=== PATIENT | male | born 1960 | race Caucasian/White ===

== ENCOUNTER 2022-01-21 16:07 | Inpatient (IN) ==
[2022-01-21] MEDS ORDERED: FUROSEMIDE 100 MG/10 ML VIAL IV ONE (16:19)
[2022-01-21 16:38] LABS: POC Calcium, Ionized 1.17 (1.16-1.32); POC Creatinine 1.1 (0.6-1.2); POC Potassium 4.1 (3.3-5.1)
--- NOTE | 2022-01-21 16:58 | Emergency Department Note ---
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 The patient was seen yesterday in our ER for the same complaints and I recommended admission for monitored diuresis for anasarca and the patient declined, leaving the ED AGAINST MEDICAL ADVICE. The patient was supposed to have an EGD with Dr. Brown today but canceled his appointment because he is having too many loose b owel movements. Patient is on lactulose for hepatic encephalopathy. He was recently admitted at [facility] from 01/03 through 01/16 for decompensated hepatic cirrhosis. It sounds like he had another paracentesis during that admission and he recalls that they removed 4 L of fluid. The scrotal swelling has been persistent for many days and seems to be getting worse. He also has significant abdominal ascites and lower extremity swelling. He takes 20 mg of furosemide daily plus 5 mg of amiloride. He is being managed by Janett Willard, gastroenterology, and per her note is supposed to be on rifaximin, but he has not been able to afford the coinsurance on this. Review of medical records shows previous EGD dated 10/30/21 that showed no evidence of esophageal varices. The patient has anemia of chronic disease at baseline with hemoglobin is typically between 8 and 9. Related Data Home Medications Medication Instructions Recorded Confirmed furosemide 40 mg tablet 20 mg PO QDAY 11/20/21 12/10/21 spironolactone 100 mg tablet 50 mg PO QDAY 11/20/21 12/10/21 ascorbic acid (vitamin C) 1,000 mg 1 g PO QDAY 12/10/21 12/10/21 tablet rifaximin 550 mg tablet (Xifaxan) 550 mg PO BID 12/10/21 12/10/21 sulfamethoxazole 800 1 tab PO BID 12/10/21 12/10/21 mg-trimethoprim 160 mg tablet (Bactrim DS) Previous Rx's Medication Instructions Recorded omeprazole 20 mg capsule,delayed 40 mg PO QDAY #180 caps 02/28/21 release lactulose 20 gram/30 mL oral 20 g (30 mL) PO TID #3,000 mL 11/01/21 solution triamcinolone acetonide 0.5 % 1 applic topical BID #15 grams 11/20/21 topical cream allopurinol 300 mg tablet 300 mg PO QDAY #90 tabs 11/22/21 alprazolam 1 mg tablet 1 mg PO BID #56 tabs 01/14/22 hydrocodone 10 mg-acetaminophen 1 tab PO Q4H PRN pain, mild #168 01/20/22 325 mg tablet tabs Allergies Allergy/AdvReac Type Severity Reaction Status Date / Time No Known Drug Allergies Allergy Verified 01/20/22 17:08 Review of Systems ROS ROS Narrative: Narrative: PFSH Narrative Patient History Narrative: Narrative: Medical/Surgical/Family History All Active Problems (Updated 01/21/22 @ 21:20 by Kaylee Ray PA-C) Anasarca (Acute) Abdominal ascites (Acute) Hyponatremia (Acute) Thrombocytopenia (Acute) Anasarca (Acute) Abdominal ascites (Acute) ALC (alcoholic liver cirrhosis) (Acute) Acute hyponatremia (Acute) Kidney mass (Acute) Ascites due to alcoholic cirrhosis (Acute) Hepatic encephalopathy (Acute) Musculoskeletal pain (Chronic) Inflammatory polyarthropathy (Chronic) Generalized anxiety disorder (Chronic) Gout (Chronic) Hypertension (Chronic) Joint pain (Chronic) Hemangioma of skin and subcutaneous tissue (Chronic) Pain in metatarsus of both feet (Chronic) History of cryosurgery (Chronic) Tooth pain (Chronic 03/19/15) Hip pain (Chronic 01/22/12) Backache (Chronic 01/22/12) Positive urine drug screen (Chronic 09/06/15) Anxiety (Chronic) Arthritis (Chronic) Daytime sleepiness (Chronic) Tobacco use (Chronic) Alcohol use (Chronic) Lumbar disc disease with radiculopathy (Chronic) Transaminitis (Chronic) Bicipital tendinitis of left shoulder (Chronic) Chronic prescription opiate use (Chronic) Lumbar disc disease with radiculopathy (Chronic) Ventral hernia (Chronic) Spondylosis without myelopathy or radiculopathy, cervical region (Chronic) Radiculopathy, cervical region (Chronic) Myalgia, unspecified site (Chronic) Cervicalgia (Chronic) Chronic gout (Chronic) History of surgery (Chronic) Medicare annual wellness visit, initial (Chronic) Carpal tunnel syndrome of right wrist (Chronic) CMC arthritis, thumb, degenerative (Chronic) Acute bronchitis (Chronic) Polyarthralgia (Chronic) Rheumatoid factor positive (Chronic) Dry eyes (Chronic) Right hand pain (Chronic) Pain of right thumb (Acute) Radiculopathy of lumbar region (Acute) Myofascial pain (Acute) 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) Alcohol use (Acute) Bilateral lower extremity edema (Acute) Constipation (Acute) Abdominal distention, non-gaseous (Acute) Abdominal pain (Acute) Ascites (Acute) Decompensated hepatic cirrhosis (Acute) Cirrhosis (Chronic) Budd-Chiari syndrome (Acute) Hyperammonemia (Acute) Jaundice (Acute) Insomnia (Acute) No-show for appointment (Acute) Medical History Abdominal distention, non-gaseous Abdominal pain Acute bronchitis Alcohol use Alcohol use Anxiety Arthritis Ascites due to alcoholic cirrhosis Backache (01/22/12) Bicipital tendinitis of left shoulder Bilateral lower extremity edema Carpal tunnel syndrome of right wrist Cervicalgia Chronic gout Chronic prescription opiate use CMC arthritis, thumb, degenerative Constipation Daytime sleepiness Degenerative arthritis of metacarpophalangeal joint of index finger of right hand Dry eyes Generalized anxiety disorder Gout Chech Uric acid Hemangioma of skin and subcutaneous tissue Hepatic encephalopathy Hip pain (01/22/12) Hyperammonemia Hypertension Inflammatory polyarthropathy Insomnia Jaundice Joint pain Left ankle pain Left wrist pain Lesion of penis 2 mm hemangioma on left side of meatus of penis Lumbar disc disease with radiculopathy Lumbar disc disease with radiculopathy Medicare annual wellness visit, initial Muscle pain Musculoskeletal pain Sharp-interference with sleep, interference with work, moderate to severe. Myalgia, unspecified site Pain in metatarsus of both feet Pain in right wrist (09/06/15) Pain of right thumb Polyarthralgia Positive urine drug screen (09/06/15) Positive for cocaine Radiculopathy, cervical region Rheumatoid arthritis (09/07/13) Rheumatoid factor positive Right ankle pain Right hand pain Spondylosis without myelopathy or radiculopathy, cervical region Swelling of left hand MCP swelling and tenderness and PIP swelling and tenderness Swelling of right hand MCP swelling and tenderness and PIP swelling and tenderness Tobacco use Tooth pain (03/19/15) In process of dental work Transaminitis Ventral hernia Surgical History History of cryosurgery Warts/Seborrheic Keratoses/Actinic Keratoses: Destruction Benign Lesions History of surgery Trial w/o sed 06/22/2019 MBB #1 Ja. C3-7 w/o sed 05/09/2019 CONCEPCION #2 w/cath, w/o sed 01/13/19 CONCEPCION #1 w/cath, w/o sed 12/15/18 History of throat surgery 2012 History of total left knee replacement 2012 Family History Unknown Arthritis Social History Alcohol Intake Frequency: a few times a week Substance Use: marijuana Exam Narrative Narrative: Narrative: Course Course Course Narrative: 61-year-old male with liver cirrhosis and recurrent ascites presents to the ER with anasarca Reevaluation(s) Reevaluation #1: Establish IV give 60 mg IV Lasix. This time will place Rivas catheter as he had difficulty voiding yesterday. I reached out to Dr. Carey, hospitalist for admission for monitored IV diuresis and stabilization. Hopefully he can connect with Dr. Brown while he is here this week for his EGD. Reevaluation #2: Patient is having heightened anxiety right now and is asking for anxiety medications. He vehemently denies recurrent alcohol use. Patient has chronically been on benzodiazepines and narcotics, and these are currently being prescribed by his PCP. At this time given his severe anxiety I gave him 1 mg of oral Ativan we will monitor. Reevaluation #3: Patient is still feeling anxious with tremors. We discussed some IV Benadryl and will trial 50 mg IV x1 dose. Vital Signs Vital signs: Vital Signs Temperature 98.2 F 01/21/22 16:07 Pulse Rate 74 01/21/22 16:07 Respiratory Rate 18 01/21/22 16:07 Blood Pressure 101/66 01/21/22 16:07 Pulse Oximetry (%) 97 01/21/22 16:07 Oxygen Delivery Method 01/21/22 16:07 Temperature 98.0 F 01/21/22 20:14 Pulse Rate 77 01/21/22 20:14 Respiratory Rate 12 01/21/22 20:14 Blood Pressure 108/68 01/21/22 20:14 Pulse Oximetry (%) 100 01/21/22 20:14 Oxygen Delivery Method 01/21/22 20:14 MDM MDM Narrative Medical decision making narrative: Child's Phillips class B alcoholic liver cirrhosis Recurrent ascites Anasarca Hyponatremia The patient has been accepted for admission by Dr. Carey for monitored diuresis and stabilization. Lab Data Result diagrams: 01/21/22 16:33 01/21/22 16:33 Labs: Lab Results 01/21/22 01/21/22 01/21/22 Range/Units 16:33 16:33 16:33 WBC 9.9 (4.5-11.0) K/mcL RBC 3.11 L (4.63-6.08) M/mcL Hgb 10.4 L (13.7-17.5) g/dL Hct 29.2 L (40.1-51.0) % POC Hct 28.0 L (41-55) MCV 93.9 (80.0-100.0) fL MCH 33.4 (26.0-34.0) pg MCHC 35.6 (31.0-36.0) g/dL RDW 14.8 H (11.5-14.5) % Plt Count 100 L (140-440) K/mcL MPV 10.5 (8.8-12.5) fL Immature Gran % (Auto) 0.5 (0.0-0.5) % Neut % (Auto) 73.8 (38.0-78.0) % Lymph % (Auto) 9.7 L (15.5-49.0) % [place] % (Auto) 15.2 H (1.0-12.0) % Eos % (Auto) 0.7 (0.0-7.0) % Baso % (Auto) 0.1 (0.0-2.0) % Lymph # (Auto) 0.96 L (1.50-4.80) K/mcL [place] # (Auto) 1.50 H (0.10-0.90) K/mcL Eos # (Auto) 0.07 (0.00-0.70) K/mcL Baso # (Auto) 0.01 (0.00-0.30) K/mcL Immature Gran # 0.05 (0.00-0.05) K/mcl Absolute Neutrophils 7.26 (1.80-8.00) K/mcL POC Sodium 126 L (133-145) Sodium 119 L* (133-145) mmol/L POC Potassium 4.1 (3.3-5.1) Potassium 4.1 (3.3-5.1) mmol/L POC Chloride 98 (96-108) Chloride 91 L (96-108) mmol/L Carbon Dioxide 16 L (22-30) mmol/L POC Total CO2 16.0 L (22-30) Anion Gap 12.0 (8.0-16.0) POC BUN 40 H (6-20) BUN 42 H (8-23) mg/dL Creatinine 1.0 (0.7-1.2) mg/dL POC Creatinine 1.1 (0.6-1.2) GFR Calculation 81 Glucose 96 (70-105) mg/dL POC Glucose 98 (70-105) Uric Acid 7.4 (2.5-8.0) mg/dL Calcium 8.4 L (8.6-10.4) mg/dL POC WB Ioniz Calcium 1.17 (1.16-1.32) Phosphorus 3.3 (2.5-4.5) mg/dL Magnesium 2.2 (1.6-2.5) mg/dL Total Bilirubin 1.3 H (0.1-1.0) mg/dL Direct Bilirubin 0.5 H (<0.3) mg/dL GGT 31 (8-61) U/L AST 75 H (<40) U/L ALT 44 H (<40) U/L Alkaline Phosphatase 103 (39-117) U/L Lactate Dehydrogenase 355 H (135-225) U/L Total Protein 5.8 L (5.9-8.4) gm/dL Albumin 2.8 L (3.2-5.2) gm/dL Globulin 3.0 (2.2-3.7) gm/dL Albumin/Globulin Ratio 0.9 L (1.0-2.3) Triglycerides 63 (<150) mg/dL Urine Color Urine Appearance (Clear) Urine pH (5.0-9.0) Ur Specific [place] (1.000-1.035) Urine Protein (Negative) mg/dL Urine Glucose (UA) (Negative) mg/dL Urine Ketones (Negative) mg/dL Urine Occult Blood (Negative) mg/dL Urine Nitrate (Negative) Urine Bilirubin (Negative) mg/dL Urine Urobilinogen mg/dL Ur Leukocyte Esterase (Negative) /uL Ur Culture Indicated? 01/21/22 Range/Units 16:33 WBC (4.5-11.0) K/mcL RBC (4.63-6.08) M/mcL Hgb (13.7-17.5) g/dL Hct (40.1-51.0) % POC Hct (41-55) MCV (80.0-100.0) fL MCH (26.0-34.0) pg MCHC (31.0-36.0) g/dL RDW (11.5-14.5) % Plt Count (140-440) K/mcL MPV (8.8-12.5) fL Immature Gran % (Auto) (0.0-0.5) % Neut % (Auto) (38.0-78.0) % Lymph % (Auto) (15.5-49.0) % [place] % (Auto) (1.0-12.0) % Eos % (Auto) (0.0-7.0) % Baso % (Auto) (0.0-2.0) % Lymph # (Auto) (1.50-4.80) K/mcL [place] # (Auto) (0.10-0.90) K/mcL Eos # (Auto) (0.00-0.70) K/mcL Baso # (Auto) (0.00-0.30) K/mcL Immature Gran # (0.00-0.05) K/mcl Absolute Neutrophils (1.80-8.00) K/mcL POC Sodium (133-145) Sodium (133-145) mmol/L POC Potassium (3.3-5.1) Potassium (3.3-5.1) mmol/L POC Chloride (96-108) Chloride (96-108) mmol/L Carbon Dioxide (22-30) mmol/L POC Total CO2 (22-30) Anion Gap (8.0-16.0) POC BUN (6-20) BUN (8-23) mg/dL Creatinine (0.7-1.2) mg/dL POC Creatinine (0.6-1.2) GFR Calculation Glucose (70-105) mg/dL POC Glucose (70-105) Uric Acid (2.5-8.0) mg/dL Calcium (8.6-10.4) mg/dL POC WB Ioniz Calcium (1.16-1.32) Phosphorus (2.5-4.5) mg/dL Magnesium (1.6-2.5) mg/dL Total Bilirubin (0.1-1.0) mg/dL Direct Bilirubin (<0.3) mg/dL GGT (8-61) U/L AST (<40) U/L ALT (<40) U/L Alkaline Phosphatase (39-117) U/L Lactate Dehydrogenase (135-225) U/L Total Protein (5.9-8.4) gm/dL Albumin (3.2-5.2) gm/dL Globulin (2.2-3.7) gm/dL Albumin/Globulin Ratio (1.0-2.3) Triglycerides (<150) mg/dL Urine Color Yellow Urine Appearance Hazy A (Clear) Urine pH 5.0 (5.0-9.0) Ur Specific [place] 1.017 (1.000-1.035) Urine Protein Negative (Negative) mg/dL Urine Glucose (UA) Negative (Negative) mg/dL Urine Ketones Negative (Negative) mg/dL Urine Occult Blood Negative (Negative) mg/dL Urine Nitrate Negative (Negative) Urine Bilirubin Negative (Negative) mg/dL Urine Urobilinogen Negative mg/dL Ur Leukocyte Esterase Negative (Negative) /uL Ur Culture Indicated? No Discharge Plan Patient/Caregiver Discharge Instructions Pt seen by [facility] [employer]/PA only: Yes Clinical Impression: Anasarca, Abdominal ascites, ALC (alcoholic liver cirrhosis), Acute hypona tremia Patient Disposition: Xfer As Inpt ([facility]) Discharge Date/Time: 01/21/22 19:55
--- NOTE | 2022-01-21 17:53 | Cat Scan Report ---
INDICATION: fall last night, head injury COMPARISON: None. TECHNIQUE: Axial noncontrast-enhanced images through the brain. Sagittally and coronally reformatted images. FINDINGS: Cerebral hemispheres:Negative. No intra-axial abnormality. No intra-axial hematoma. No localized mass effect.Brain volume is within normal limits for age. Periventricular white matter is negative without significant attenuation abnormality. Brainstem and cerebellum:No intra-axial abnormality Extra-axial:No acute hemorrhage. No subdural or epidural hematoma. No subarachnoid hemorrhage. Basilar cisterns are normal Calvarial:No calvarial fracture. No lytic lesion Temporal bones are negative. No destructive lesions Soft tissue, orbits, sinuses:Mild mucoperiosteal thickening within the right maxillary sinus. There is bilateral frontal and periorbital soft tissue swelling. No soft tissue gas or detectable foreign body. Globes are normal. No intraorbital abnormality. Nasal bones appear normal. IMPRESSION: 1. Periorbital soft tissue swelling 2. No acute intracranial abnormality The exam was performed using radiation dose optimization techniques including, but not limited to, automated exposure control, adjustment of the mA and/or kV according to patient size and use of iterative reconstruction technique. Interpreted and Authenticated by: Christian Stevens 01/21/22
[2022-01-21] MEDS ORDERED: LORazepam 1 MG TABLET PO ONE (18:02)
--- NOTE | 2022-01-21 18:06 | Internal Med History&Physical ---
HPI History of Present Illness Patient information: Note initiated : 01/21/22 at 5:59 pm Service Date, if different from initiated Date: [] Patient: Ubaldo Bajwa a 61 y/o M admitted on for swollen testicles. Chief Complaint: [] History of present illness: Mr. Bajwa is a 61 year old M Patient presented to the ED yesterday with scrotal swelling. Patient has a history of cirrhosis with ascites and gets paracentesis almost once a month. He had one done a week ago and had 4 L taken off. Yesterday is recommended for him to stay and get diuresed but he left AMA. But came back again today because of the swelling bothers him so much. Patient denies any abdominal pain. No fever chills nausea vomiting chest pain shortness of breath. 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 Is also admitted to [facility] from the through 16 January for decompensated cirrhosis. He is taking lactulose and is post to be on rifaximin but does not take that because of cost. The patient was post to get a EGD done today by Dr. Brown but did not show up. Laboratory work in the ED is not complete yet but does shows an anemia which is chronic. Hyponatremia and elevated BUN to creatinine ratio. Review of Systems: Pertinent positives as above. Denies headache/fever/chills/nausea/vomiting/chest or abdominal pain/cough/dyspnea. Remaining 10 point review of system reviewed negative PFSH PFSH All Active Problems (Updated 01/20/22 @ 20:33 by Kaylee Ray PA-C) Anasarca (Acute) Abdominal ascites (Acute) Hyponatremia (Acute) Thrombocytopenia (Acute) Kidney mass (Acute) Ascites due to alcoholic cirrhosis (Acute) Hepatic encephalopathy (Acute) Musculoskeletal pain (Chronic) Inflammatory polyarthropathy (Chronic) Generalized anxiety disorder (Chronic) Gout (Chronic) Hypertension (Chronic) Joint pain (Chronic) Hemangioma of skin and subcutaneous tissue (Chronic) Pain in metatarsus of both feet (Chronic) History of cryosurgery (Chronic) Tooth pain (Chronic 03/19/15) Hip pain (Chronic 01/22/12) Backache (Chronic 01/22/12) Positive urine drug screen (Chronic 09/06/15) Anxiety (Chronic) Arthritis (Chronic) Daytime sleepiness (Chronic) Tobacco use (Chronic) Alcohol use (Chronic) Lumbar disc disease with radiculopathy (Chronic) Transaminitis (Chronic) Bicipital tendinitis of left shoulder (Chronic) Chronic prescription opiate use (Chronic) Lumbar disc disease with radiculopathy (Chronic) Ventral hernia (Chronic) Spondylosis without myelopathy or radiculopathy, cervical region (Chronic) Radiculopathy, cervical region (Chronic) Myalgia, unspecified site (Chronic) Cervicalgia (Chronic) Chronic gout (Chronic) History of surgery (Chronic) Medicare annual wellness visit, initial (Chronic) Carpal tunnel syndrome of right wrist (Chronic) CMC arthritis, thumb, degenerative (Chronic) Acute bronchitis (Chronic) Polyarthralgia (Chronic) Rheumatoid factor positive (Chronic) Dry eyes (Chronic) Right hand pain (Chronic) Pain of right thumb (Acute) Radiculopathy of lumbar region (Acute) Myofascial pain (Acute) 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) Alcohol use (Acute) Bilateral lower extremity edema (Acute) Constipation (Acute) Abdominal distention, non-gaseous (Acute) Abdominal pain (Acute) Ascites (Acute) Decompensated hepatic cirrhosis (Acute) Cirrhosis (Chronic) Budd-Chiari syndrome (Acute) Hyperammonemia (Acute) Jaundice (Acute) Insomnia (Acute) No-show for appointment (Acute) Medical History Abdominal distention, non-gaseous Abdominal pain Acute bronchitis Alcohol use Alcohol use Anxiety Arthritis Ascites due to alcoholic cirrhosis Backache (01/22/12) Bicipital tendinitis of left shoulder Bilateral lower extremity edema Carpal tunnel syndrome of right wrist Cervicalgia Chronic gout Chronic prescription opiate use CMC arthritis, thumb, degenerative Constipation Daytime sleepiness Degenerative arthritis of metacarpophalangeal joint of index finger of right hand Dry eyes Generalized anxiety disorder Gout Chech Uric acid Hemangioma of skin and subcutaneous tissue Hepatic encephalopathy Hip pain (01/22/12) Hyperammonemia Hypertension Inflammatory polyarthropathy Insomnia Jaundice Joint pain Left ankle pain Left wrist pain Lesion of penis 2 mm hemangioma on left side of meatus of penis Lumbar disc disease with radiculopathy Lumbar disc disease with radiculopathy Medicare annual wellness visit, initial Muscle pain Musculoskeletal pain Sharp-interference with sleep, interference with work, moderate to severe. Myalgia, unspecified site Pain in metatarsus of both feet Pain in right wrist (09/06/15) Pain of right thumb Polyarthralgia Positive urine drug screen (09/06/15) Positive for cocaine Radiculopathy, cervical region Rheumatoid arthritis (09/07/13) Rheumatoid factor positive Right ankle pain Right hand pain Spondylosis without myelopathy or radiculopathy, cervical region Swelling of left hand MCP swelling and tenderness and PIP swelling and tenderness Swelling of right hand MCP swelling and tenderness and PIP swelling and tenderness Tobacco use Tooth pain (03/19/15) In process of dental work Transaminitis Ventral hernia Surgical History History of cryosurgery Warts/Seborrheic Keratoses/Actinic Keratoses: Destruction Benign Lesions History of surgery Trial w/o sed 06/22/2019 MBB #1 Ja. C3-7 w/o sed 05/09/2019 CONCEPCION #2 w/cath, w/o sed 01/13/19 CONCEPCION #1 w/cath, w/o sed 12/15/18 History of throat surgery 2012 History of total left knee replacement 2012 Family History Unknown Arthritis Social History marital status: single alcohol intake frequency: a few times a week substance use type: marijuana MEDS/ALLERGIES Home Medications and Allergies Home Medications Medication Instructions Recorded Confirmed Type omeprazole 20 mg capsule,delayed 40 mg PO QDAY #180 caps 02/28/21 12/10/21 Rx release lactulose 20 gram/30 mL oral 20 g (30 mL) PO TID #3,000 mL 11/01/21 12/10/21 Rx solution furosemide 40 mg tablet 20 mg PO QDAY 11/20/21 12/10/21 History spironolactone 100 mg tablet 50 mg PO QDAY 11/20/21 12/10/21 History triamcinolone acetonide 0.5 % 1 applic topical BID #15 grams 11/20/21 12/10/21 Rx topical cream allopurinol 300 mg tablet 300 mg PO QDAY #90 tabs 11/22/21 12/10/21 Rx ascorbic acid (vitamin C) 1,000 mg 1 g PO QDAY 12/10/21 12/10/21 History tablet rifaximin 550 mg tablet (Xifaxan) 550 mg PO BID 12/10/21 12/10/21 History sulfamethoxazole 800 1 tab PO BID 12/10/21 12/10/21 History mg-trimethoprim 160 mg tablet (Bactrim DS) alprazolam 1 mg tablet 1 mg PO BID #56 tabs 01/14/22 Rx hydrocodone 10 mg-acetaminophen 1 tab PO Q4H PRN pain, mild #168 01/20/22 Rx 325 mg tablet tabs Allergies Allergy/AdvReac Type Severity Reaction Status Date / Time No Known Drug Allergies Allergy Verified 01/20/22 17:08 EXAM Constitutional Vitals: Temp Pulse Resp BP Pulse Ox O2 Del Method 98.2 F 74 18 101/66 97 01/21/22 16:07 01/21/22 16:07 01/21/22 16:07 01/21/22 16:07 01/21/22 16:07 01/21/22 16:07 Exam: General: Alert, Awake, No acute Distress, cachectic appearing and disheveled Eyes/N/T: EOMI, PERRL, Head/Neck: neck supple, normocephalic atraumatic CV: RRR, No murmurs, normal s1/s2 Pulm: Clear b/l, no wheezing/rhonchi/rales Abd: soft, significantly distended, nontender, +BS x4, scrotal swelling and tender Ext: no clubbing/cyanosis, LLE 1-2+ and RLE 2-3+ edema Neuro: Alert, no focal deficits, moves all extremities, CN 2-12 grossly intact, symmetrical strength b/l upper/lower, sensations intact b/l upper/lower Skin: warm/dry DATA Data Completed and Pending Labs: Labs from last 24 hours 01/21/22 01/21/22 01/21/22 16:33 16:33 16:33 WBC Pending RBC Pending Hgb Pending Hct Pending POC Hct 28.0 L MCV Pending MCH Pending MCHC Pending RDW Pending Plt Count Pending MPV Pending Immature Gran % (Auto) Pending Neut % (Auto) Pending Immature Gran # Pending POC Sodium 126 L Sodium Pending POC Potassium 4.1 Potassium Pending POC Chloride 98 Chloride Pending Carbon Dioxide Pending POC Total CO2 16.0 L Anion Gap Pending POC BUN 40 H BUN Pending Creatinine Pending POC Creatinine 1.1 GFR Calculation Pending Glucose Pending POC Glucose 98 Uric Acid Pending Calcium Pending POC WB Ioniz Calcium 1.17 Phosphorus Pending Magnesium Pending Total Bilirubin Pending Direct Bilirubin Pending GGT Pending AST Pending ALT Pending Alkaline Phosphatase Pending Lactate Dehydrogenase Pending Total Protein Pending Albumin Pending Globulin Pending Albumin/Globulin Ratio Pending Triglycerides Pending A/P Narrative A/P Narrative: A: *Anasarca/scrotal swelling: *Cirrhosis with ascites: -States he comes into the ED for paracentesis almost once a month -MELD=23 *Hyponatremia: 2/2 above, indicates poor prognosis overall *Metabolic acidosis, non-gap: *increased BUN/Cr ratio: *Anemia, chronic: *HTN: *Depression/anxiety: *GERD: *Right renal mass: Being worked up outpatient by oncology/nephrology *Urinary retention: *Tobacco use * P: -check cbc -IV diuresis, uop, i/o -f/u sodium -lactulose/rifaximin -Discuss with Janett Willard regarding missed EGD in AM - -Check urine sodium eval for hepatorenal syndrome -Flomax - -Smoking cessation counseling >3 minutes -PT/OT -Home medication reconciliation -ppx: Lovenox Time Spent With Patient Time: Total time spent is greater than 50% in coordination of care (as documented) at patient's floor/unit and/or counseling patient: Total time spent with greater than 50% in coordination of care (as documented) at patient's floor/unit and/or counseling patient:: Greater than 70 minutes
[2022-01-21] MEDS ORDERED: diphenhydrAMINE 50 MG/ML VIAL IV ONE (19:26)
[2022-01-21 20:00] LABS: Appearance,Urine HAZY (Clear); Bilirubin,Urine Negative (Negative); Color,Urine YELLOW; Culture Indicated,Urine No; Glucose,Urine (UA) Negative (Negative); Ketones,Urine Negative (Negative); Leukocyte Esterase,Urine Negative /uL (Negative); Nitrate,Urine Negative (Negative); Protein,Urine Negative (Negative); Specific Gravity,Urine 1.017 (1.000-1.035); Urine Blood Negative (Negative); Urobilinogen,Urine Negative
[2022-01-21 20:24] LABS: Basophils # (Auto) 0.01 K/mcL (0.00-0.30); Basophils % (Auto) 0.1 % (0.0-2.0); Eosinophils # (Auto) 0.07 K/mcL (0.00-0.70); Eosinophils % (Auto) 0.7 % (0.0-7.0); Hematocrit 29.2 % (40.1-51.0); Hemoglobin 10.4 g/dL (13.7-17.5); Lymphocytes # (Auto) 0.96 K/mcL (1.50-4.80); Lymphocytes % (Auto) 9.7 % (15.5-49.0); Mean Cell Volume 93.9 fL (80.0-100.0); Mean Corpuscular HGB Conc 35.6 g/dL (31.0-36.0); Mean Platelet Volume 10.5 fL (8.8-12.5); Monocytes % (Auto) 15.2 % (1.0-12.0); Neutrophils % (Auto) 73.8 % (38.0-78.0); Platelet Count 100 K/mcL (140-440); RBC 3.11 M/mcL (4.63-6.08); Red Cell Distribution Width 14.8 % (11.5-14.5); WBC 9.9 K/mcL (4.5-11.0)
[2022-01-21 20:25] LABS: ALT/SGPT 44 U/L (<40); AST/SGOT 75 U/L (<40); Albumin 2.8 gm/dL (3.2-5.2); Albumin/Globulin Ratio 0.9 (1.0-2.3); Alkaline Phosphatase 103 U/L (39-117); Bilirubin,Direct 0.5 mg/dL (<0.3); Bilirubin,Total 1.3 mg/dL (0.1-1.0); Blood Urea Nitrogen 42 mg/dL (8-23); Calcium 8.4 mg/dL (8.6-10.4); Carbon Dioxide 16 mmol/L (22-30); Chloride 91 mmol/L (96-108); Glomerular Filtration Rate 81; Glucose 96 mg/dL (70-105); Lactate Dehydrogenase 355 U/L (135-225); Phosphorous 3.3 mg/dL (2.5-4.5); Triglycerides 63 mg/dL (<150); Uric Acid 7.4 mg/dL (2.5-8.0)
[2022-01-21] MEDS ORDERED: MAGNESIUM SULFATE 2 GM/50 ML BAG IV PRN (20:44)
[2022-01-21] MEDS ORDERED: ONDANSETRON 4 MG/2 ML VIAL IV PRN (20:44)
[2022-01-21] MEDS ORDERED: LACTULOSE 20 GM/30 ML ORAL.SOL PO PRN (20:44)
[2022-01-21] MEDS ORDERED: POTASSIUM CHLORIDE 20 MEQ TABLET PO PRN ×2 (20:44)
[2022-01-21] MEDS ORDERED: POTASSIUM CHLORIDE 40 MEQ in DEXTROSE 5% IN WATER 500 ML IV PRN (20:44)
[2022-01-21] MEDS ORDERED: IPRATROPIUM/ALBUTEROL 3 ML AMPUL.NEB NEB PRN (20:44)
[2022-01-21] MEDS: TAMSULOSIN 0.4 MG CAPSULE PO SCH (21:34)
[2022-01-21] MEDS: SODIUM CHLORIDE 1 GM TABLET PO SCH (21:34)
[2022-01-21] MEDS: 0.9 % SODIUM CHLORIDE 10 ML SYRINGE IV SCH (21:34)
[2022-01-21] MEDS: LORazepam 2 MG/ML VIAL IV PRN (21:41)
[2022-01-21 21:50] LABS: Thyroid Stimulating Hormone 3.5 uIU/mL (0.27-5.01); Uric Acid 7.5 mg/dL (2.5-8.0)
[2022-01-22] MEDS ORDERED: LACTATED RINGERS 1,000 ML IV ONE ×2 (04:37→05:37)
[2022-01-22] MEDS ORDERED: ALBUMIN HUMAN 12.5 GM/50 ML BAG IV ONE ×2 (04:45→07:23)
[2022-01-22] MEDS ORDERED: ALBUMIN HUMAN 50 ML IV ONE (05:11)
[2022-01-22] MEDS: 0.9 % SODIUM CHLORIDE 10 ML SYRINGE IV SCH ×3 (05:28→20:05)
[2022-01-22 07:17] LABS: INR 1.5 (0.9-1.1); Prothrombin Time 19.1 sec (11.9-14.5)
--- NOTE | 2022-01-22 07:22 | Internal Med Progress Note ---
SUBJECTIVE Subjective Patient information: Note initiated : 01/22/22 at 7:17 am Service Date, if different from initiated Date: [] Patient: Ubaldo Bajwa a 61 y/o M admitted on 01/21/22 for swollen testicles. Chief Complaint: [] Interval history: History of present illness: Mr. Bajwa is a 61 year old M Patient presented to the ED yesterday with scrotal swelling. Patient has a history of cirrhosis with ascites and gets paracentesis almost once a month. He had one done a week ago and had 4 L taken off. Yesterday is recommended for him to stay and get diuresed but he left AMA. But came back again today because of the swelling bothers him so much. Patient denies any abdominal pain. No fever chills nausea vomiting chest pain shortness of breath. 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 Is also admitted to [facility] from the through 16 January for decompensated cirrhosis. He is taking lactulose and is post to be on rifaximin but does not take that because of cost. The patient was post to get a EGD done today by Dr. Brown but did not show up. Laboratory work in the ED is not complete yet but does shows an anemia which is chronic. Hyponatremia and elevated BUN to creatinine ratio. 01/22 Patient borderline hypotensive maps last night required fluid boluses. Transferred to PCU. Lethargic/drowsy this morning. Elevated ammonia. Lactul ose and rifaximin started. INR 1.5. Met acidosis. Discussed case with Janett Willard. Review of Systems: denies headache/fever/chills/nausea/vomiting/chest or abdominal pain/cough/dyspnea/diarrhea. Otherwise see above. Constitutional Vitals: Vital Signs Temp Pulse Resp BP Pulse Ox O2 Del Method 97.6 F 78 12 92/56 99 01/22/22 03:02 01/22/22 05:35 01/22/22 03:02 01/22/22 06:16 01/22/22 05:35 01/22/22 05:35 Period Temp Pulse Resp BP Sys/Smith Pulse Ox O2 Del Method O2 Flow Rate Last 24 Hr 97.6 F-98.2 F 60-90 12-18 82-109/51-78 97-100 Room Air-Room Air Intake and Output 01/21/22 01/22/22 01/22/22 21:59 05:59 13:59 Intake Total 790 500 Output Total 200 350 Balance -200 440 500 Weight 72.83 kg Intake & Output: Intake & Output 01/21/22 01/22/22 01/22/22 21:59 05:59 13:59 Intake Total 790 500 Output Total 200 350 Balance -200 440 500 Weight 72.83 kg Intake: IV 550 500 Lactated Ringers 1,000 ml @ 500 500 Wide Open IV BOLUS ONE Rx#: [id number] Oral 240 Output: Void Amount 200 350 Uretheral (Jarvis) 200 Other: Urine Appearance Clear Uretheral (Jarvis) Clear Urine Color Yellow Uretheral (Jarvis) Yellow Urine Odor Uretheral (Jarvis) Normal Exam: General: drowsy, No acute Distress, cachectic appearing and disheveled Eyes/N/T: EOMI, Head/Neck: neck supple, CV: RRR, No murmurs, Pulm: Clear b/l, no wheezing/rhonchi/rales Abd: soft, significantly distended, nontender, +BS x4, scrotal swelling and tender Ext: no clubbing/cyanosis, LLE 1+ and RLE 2-3+ edema Neuro: Lethargic and drowsy, no focal deficits, moves all extremities, Skin: warm/dry OBJ DATA Labs CBC & Chem 7: 01/22/22 06:12 01/22/22 06:12 Labs: Abnormal Lab Results 01/22/22 01/21/22 01/21/22 06:11 21:14 16:33 RBC Hgb Hct POC Hct RDW Plt Count Lymph % (Auto) Gonzales % (Auto) Lymph # (Auto) Gonzales # (Auto) POC Sodium Sodium Chloride Carbon Dioxide POC Total CO2 POC BUN BUN Osmolality 277 L Calcium Total Bilirubin Direct Bilirubin AST ALT Ammonia 322 H Lactate Dehydrogenase Total Protein Albumin Albumin/Globulin Ratio Urine Appearance Hazy A 01/21/22 01/21/22 01/21/22 16:33 16:33 16:33 RBC 3.11 L Hgb 10.4 L Hct 29.2 L POC Hct 28.0 L RDW 14.8 H Plt Count 100 L Lymph % (Auto) 9.7 L Gonzales % (Auto) 15.2 H Lymph # (Auto) 0.96 L Gonzales # (Auto) 1.50 H POC Sodium 126 L Sodium 119 L* Chloride 91 L Carbon Dioxide 16 L POC Total CO2 16.0 L POC BUN 40 H BUN 42 H Osmolality Calcium 8.4 L Total Bilirubin 1.3 H Direct Bilirubin 0.5 H AST 75 H ALT 44 H Ammonia Lactate Dehydrogenase 355 H Total Protein 5.8 L Albumin 2.8 L Albumin/Globulin Ratio 0.9 L Urine Appearance Meds: Medications Acetaminophen (Acetaminophen 325 Mg Tablet) 650 mg PO Q6HP PRN; Protocol PRN Reason: Per Pain Protocol/Fever > 101 Albuterol/Ipratropium (Ipratropium/Albuterol 3 Ml Ampul.Neb) 3 ml NEB Q4HP PRN PRN Reason: Shortness Of Breath Enoxaparin Sodium (Enoxaparin 40 Mg/0.4 Ml Syringe) 40 mg SQ DAILY WARD Furosemide (Furosemide 40 Mg/4 Ml Vial) 40 mg IV BIDD [facility] Potassium Chloride 40 meq/ (Dextrose) 520 mls @ 130 mls/hr IV UD PRN PRN Reason: Potassium < 3 Magnesium Sulfate (Magnesium Sulfate) 2 gm in 50 mls @ 50 mls/hr IV UD PRN PRN Reason: Magnesium </= 1.6 Lactulose (Lactulose 20 Gm/30 Ml Oral.Iris) 20 gm PO DAILYP PRN PRN Reason: Constipation Lorazepam (Lorazepam 2 Mg/Ml Vial) 0.5 mg IV Q6HP PRN PRN Reason: ANXIETY/SEDATION Last Admin: 01/21/22 21:41 Dose: 0.5 mg Ondansetron HCl (Ondansetron 4 Mg/2 Ml Vial) 4 mg IV Q4HP PRN PRN Reason: Nausea And Vomiting Potassium Chloride (Potassium Chloride 20 Meq Tablet) 40 meq PO UD PRN PRN Reason: Potssium is 3-3.5 Potassium Chloride (Potassium Chloride 20 Meq Tablet) 40 meq PO UD PRN PRN Reason: Potassium < 3 Sodium Chloride (0.9 % Sodium Chloride 10 Ml Syringe) 10 ml IV Q8 [facility] Last Admin: 01/22/22 05:28 Dose: 10 ml Sodium Chloride (Sodium Chloride 1 Gm Tablet) 2 gm PO BID [facility] Last Admin: 01/21/22 21:34 Dose: 2 gm Tamsulosin HCl (Tamsulosin 0.4 Mg Capsule) 0.4 mg PO HS [facility] Last Admin: 01/21/22 21:34 Dose: 0.4 mg A/P Narrative A/P Narrative: A: *Anasarca/scrotal swelling: *Cirrhosis decompensated with ascites & Hepatic Encephalopathy: -hypoalbuminemia/coagulopathy/thrombocytopenia/elevated ammonia -States he comes into the ED for paracentesis almost once a month -MELD=23 (90-day mortality @20% risk), child-jordan=8(significant functional compromise, 80%/60% 1yr/2yr survival rate) *Hyponatremia: 2/2 above, indicates poor prognosis overall *Metabolic acidosis, non-gap: *increased BUN/Cr ratio: *Anemia, chronic: *HTN: *Depression/anxiety: *GERD: *Right renal mass: Being worked up outpatient by oncology/nephrology *Urinary retention: jarvis placed *Tobacco use: P: -IV diuresis held for low BP -monitor uop, i/o -f/u sodium -lactulose/rifaximin -prn paracentesis -Discussed with Janett Willard, consult. missed thursday EGD appt -Flomax, d/c jarvis prior to d/c -Smoking cessation counseling -PT/OT -need Home medication reconciliation -ppx: Lovenox (hold if plt<50k) Time Spent With Patient Time: Total time spent is greater than 50% in coordination of care (as documented) at patient's floor/unit and/or counseling patient: Total time spent with greater than 50% in coordination of care (as documented) at patient's floor/unit and/or counseling patient:: 35 - 50 minutes QUALITY VTE Deep Vein Thrombosis/Pulmonary Embolism Present on Admission: No
[2022-01-22 08:27] LABS: Hematocrit 24.9 % (40.1-51.0); Hemoglobin 8.8 g/dL (13.7-17.5); Mean Cell Volume 95.8 fL (80.0-100.0); Mean Corpuscular HGB Conc 35.3 g/dL (31.0-36.0); Platelet Count 54 K/mcL (140-440); Red Cell Distribution Width 14.7 % (11.5-14.5); WBC 4.6 K/mcL (4.5-11.0)
[2022-01-22] MEDS: FUROSEMIDE 40 MG/4 ML VIAL IV SCH ×2 (08:28→16:20)
[2022-01-22 08:35] LABS: Anisocytosis 1+ (None Seen); Band Neutrophils % 1 % (0-10); Lymphocytes % 13 % (15-49); Monocytes % (Manual) 13 % (1-12); Platelet Estimate MARKEDLY DECREASED (Normal); Poikilocytosis 1+ (None Seen); RBC Morphology ABNORMAL (Normal); Segmented Neutrophils % 73 % (38-78)
[2022-01-22] MEDS: LACTULOSE 20 GM/30 ML ORAL.SOL PO SCH ×4 (08:42→21:12)
[2022-01-22 08:49] LABS: ALT/SGPT 36 U/L (<40); AST/SGOT 58 U/L (<40); Albumin 2.3 gm/dL (3.2-5.2); Albumin/Globulin Ratio 0.8 (1.0-2.3); Alkaline Phosphatase 91 U/L (39-117); Bilirubin,Direct 0.4 mg/dL (<0.3); Blood Urea Nitrogen 39 mg/dL (8-23); Calcium 8.1 mg/dL (8.6-10.4); Carbon Dioxide 16 mmol/L (22-30); Chloride 99 mmol/L (96-108); Glomerular Filtration Rate 81; Glucose 86 mg/dL (70-105); Lactate Dehydrogenase 309 U/L (135-225); Triglycerides 57 mg/dL (<150); Uric Acid 7.5 mg/dL (2.5-8.0)
[2022-01-22] MEDS ORDERED: LACTULOSE 20 GM/30 ML ORAL.SOL PO ONE ×2 (09:41→11:23)
[2022-01-22] MEDS ORDERED: HEPARIN 5,000 UNIT/ML VIAL SQ ONE (09:47)
[2022-01-22] MEDS: ENOXAPARIN 40 MG/0.4 ML SYRINGE SQ SCH (09:50)
[2022-01-22] MEDS: SODIUM CHLORIDE 1 GM TABLET PO SCH ×2 (11:36→20:53)
[2022-01-22] MEDS: RIFAXIMIN 550 MG TABLET PO SCH ×2 (11:36→20:53)
[2022-01-22] MEDS: LACTULOSE 20 GM/30 ML ORAL.SOL PO ONE ×2 (13:08→13:10)
--- NOTE | 2022-01-22 13:23 | Internal Med Progress Note ---
SUBJECTIVE Subjective Patient information: Note initiated : 01/22/22 at 1:16 pm Service Date, if different from initiated Date: [] Patient: Ubaldo Bajwa a 61 y/o M admitted on 01/21/22 for swollen testicles. Chief Complaint: [] Interval history: History of present illness: Mr. Bajwa is a 61 year old M Patient presented to the ED yesterday with scrotal swelling. Patient has a history of cirrhosis with ascites and gets paracentesis almost once a month. He had one done a week ago and had 4 L taken off. Yesterday is recommended for him to stay and get diuresed but he left AMA. But came back again today because of the swelling bothers him so much. Patient denies any abdominal pain. No fever chills nausea vomiting chest pain shortness of breath. 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 Is also admitted to [facility] from the through 16 January for decompensated cirrhosis. He is taking lactulose and is post to be on rifaximin but does not take that because of cost. The patient was post to get a EGD done today by Dr. Brown but did not show up. Laboratory work in the ED is not complete yet but does shows an anemia which is chronic. Hyponatremia and elevated BUN to creatinine ratio. 01/22 Patient borderline hypotensive maps last night required fluid boluses. Transferred to PCU. Lethargic/drowsy this morning. Elevated ammonia. Lactul ose and rifaximin started. INR 1.5. Met acidosis. Discussed case with Janett Willard. 01/23 Paracentesis today for about 8400 mL, albumin feels 50 g IV given. Deferred EGD until tomorrow due to large volume paracentesis today. Mental status and ammonia level improving, sodium level normal. Low potassium replaced. Physical exam Head: Atraumatic, normal inspection. Eyes: normal appearance, no scleral icterus. Neck: full ROM Respiratory: no respiratory distress. Cardiovascular: normal rate and rhythm, S1, S2. GI/Abdominal: Tense ascites, nontender, no guarding. Extremities: full range of motion, nontender. Neurological: CN II-XII intact, intact motor, intact sensation. Psychiatric: Impaired cognition. Skin: warm, normal color Constitutional Vitals: Vital Signs Temp Pulse Resp BP Pulse Ox O2 Del Method 97.1 F 76 18 98/58 100 01/22/22 12:01 01/22/22 07:00 01/22/22 12:01 01/22/22 12:01 01/22/22 12:01 01/22/22 12:01 Period Temp Pulse Resp BP Sys/Smith Pulse Ox O2 Del Method O2 Flow Rate Last 24 Hr 97.1 F-98.9 F 60-90 12-19 82-109/48-78 94-100 Room Air-Room Air Intake and Output 01/21/22 01/22/22 01/22/22 21:59 05:59 13:59 Intake Total 790 550 Output Total 200 350 Balance -200 440 550 Weight 72.83 kg 72.83 kg Patient Weight 01/23/22 05:59 Weight 72.83 kg Intake & Output: Intake & Output 01/21/22 01/22/22 01/22/22 21:59 05:59 13:59 Intake Total 790 550 Output Total 200 350 Balance -200 440 550 Weight 72.83 kg 72.83 kg Intake: IV 550 550 Lactated Ringers 1,000 ml @ 500 500 Wide Open IV BOLUS ONE Rx#: [id number] Oral 240 Output: Void Amount 200 350 Uretheral (Jarvis) 200 Other: Urine Appearance Clear Uretheral (Jarvis) Clear Clear Urine Color Yellow Uretheral (Jarvis) Yellow Dark Yellow Urine Odor Uretheral (Jarvis) Normal OBJ DATA Labs CBC & Chem 7: 01/23/22 05:50 01/23/22 05:50 Labs: Abnormal Lab Results 01/22/22 01/22/22 01/22/22 06:12 06:12 06:12 RBC 2.60 L Hgb 8.8 L Hct 24.9 L POC Hct RDW 14.7 H Plt Count 54 L Lymph % (Auto) [place] % (Auto) Lymph # (Auto) [place] # (Auto) Lymphocytes % 13 L Monocytes % (Manual) 13 H Platelet Estimate Markedly decreased A RBC Morphology Abnormal A Poikilocytosis 1+ A Anisocytosis 1+ A PT INR POC Sodium Sodium Chloride Carbon Dioxide POC Total CO2 POC BUN BUN Osmolality Calcium Total Bilirubin Direct Bilirubin AST ALT Ammonia Lactate Dehydrogenase C-Reactive Protein 1.70 H Total Protein Albumin Albumin/Globulin Ratio Procalcitonin 0.22 H Urine Appearance 01/22/22 01/22/22 01/22/22 06:12 06:12 06:11 RBC Hgb Hct POC Hct RDW Plt Count Lymph % (Auto) [place] % (Auto) Lymph # (Auto) [place] # (Auto) Lymphocytes % Monocytes % (Manual) Platelet Estimate RBC Morphology Poikilocytosis Anisocytosis PT 19.1 H INR 1.5 H POC Sodium Sodium 128 L Chloride Carbon Dioxide 16 L POC Total CO2 POC BUN BUN 39 H Osmolality Calcium 8.1 L Total Bilirubin Direct Bilirubin 0.4 H AST 58 H ALT Ammonia 322 H Lactate Dehydrogenase 309 H C-Reactive Protein Total Protein 5.3 L Albumin 2.3 L Albumin/Globulin Ratio 0.8 L Procalcitonin Urine Appearance 01/21/22 01/21/22 01/21/22 21:14 16:33 16:33 RBC Hgb Hct POC Hct RDW Plt Count Lymph % (Auto) [place] % (Auto) Lymph # (Auto) [place] # (Auto) Lymphocytes % Monocytes % (Manual) Platelet Estimate RBC Morphology Poikilocytosis Anisocytosis PT INR POC Sodium Sodium 119 L* Chloride 91 L Carbon Dioxide 16 L POC Total CO2 POC BUN BUN 42 H Osmolality 277 L Calcium 8.4 L Total Bilirubin 1.3 H Direct Bilirubin 0.5 H AST 75 H ALT 44 H Ammonia Lactate Dehydrogenase 355 H C-Reactive Protein Total Protein 5.8 L Albumin 2.8 L Albumin/Globulin Ratio 0.9 L Procalcitonin Urine Appearance Hazy A 01/21/22 01/21/22 16:33 16:33 RBC 3.11 L Hgb 10.4 L Hct 29.2 L POC Hct 28.0 L RDW 14.8 H Plt Count 100 L Lymph % (Auto) 9.7 L [place] % (Auto) 15.2 H Lymph # (Auto) 0.96 L [place] # (Auto) 1.50 H Lymphocytes % Monocytes % (Manual) Platelet Estimate RBC Morphology Poikilocytosis Anisocytosis PT INR POC Sodium 126 L Sodium Chloride Carbon Dioxide POC Total CO2 16.0 L POC BUN 40 H BUN Osmolality Calcium Total Bilirubin Direct Bilirubin AST ALT Ammonia Lactate Dehydrogenase C-Reactive Protein Total Protein Albumin Albumin/Globulin Ratio Procalcitonin Urine Appearance Meds: Medications Acetaminophen (Acetaminophen 325 Mg Tablet) 650 mg PO Q6HP PRN; Protocol PRN Reason: Per Pain Protocol/Fever > 101 Albuterol/Ipratropium (Ipratropium/Albuterol 3 Ml Ampul.Neb) 3 ml NEB Q4HP PRN PRN Reason: Shortness Of Breath Enoxaparin Sodium (Enoxaparin 40 Mg/0.4 Ml Syringe) 40 mg SQ DAILY [facility] Last Admin: 01/22/22 09:50 Dose: Not Given Furosemide (Furosemide 40 Mg/4 Ml Vial) 40 mg IV BIDD [facility] Last Admin: 01/22/22 08:28 Dose: Not Given Potassium Chloride 40 meq/ (Dextrose) 520 mls @ 130 mls/hr IV UD PRN PRN Reason: Potassium < 3 Magnesium Sulfate (Magnesium Sulfate) 2 gm in 50 mls @ 50 mls/hr IV UD PRN PRN Reason: Magnesium </= 1.6 Albumin Human (Buminate) 12.5 gm in 50 mls @ 100 mls/hr IV Q6H [facility] Stop: 01/22/22 20:29 Lactulose (Lactulose 20 Gm/30 Ml Oral.Iris) 20 gm PO DAILYP PRN PRN Reason: Constipation Lactulose (Lactulose 20 Gm/30 Ml Oral.Iris) 30 gm PO TID [facility] Last Admin: 01/22/22 08:42 Dose: 30 gm Lorazepam (Lorazepam 2 Mg/Ml Vial) 0.5 mg IV Q6HP PRN PRN Reason: ANXIETY/SEDATION Last Admin: 01/21/22 21:41 Dose: 0.5 mg Ondansetron HCl (Ondansetron 4 Mg/2 Ml Vial) 4 mg IV Q4HP PRN PRN Reason: Nausea And Vomiting Potassium Chloride (Potassium Chloride 20 Meq Tablet) 40 meq PO UD PRN PRN Reason: Potssium is 3-3.5 Potassium Chloride (Potassium Chloride 20 Meq Tablet) 40 meq PO UD PRN PRN Reason: Potassium < 3 Sodium Chloride (0.9 % Sodium Chloride 10 Ml Syringe) 10 ml IV Q8 [facility] Last Admin: 01/22/22 05:28 Dose: 10 ml Sodium Chloride (Sodium Chloride 1 Gm Tablet) 2 gm PO BID [facility] Last Admin: 01/22/22 11:36 Dose: 2 gm Tamsulosin HCl (Tamsulosin 0.4 Mg Capsule) 0.4 mg PO HS [facility] Last Admin: 01/21/22 21:34 Dose: 0.4 mg A/P Narrative A/P Narrative: Assessment: 61-year-old male with a history of decompensated liver cirrhosis, right renal mass, depression, anxiety, GERD resented to the ED for scrotal swelling and admitted for anasarca. The hospitalization was further complicated by hepatic encephalopathy. *Anasarca/scrotal swelling: *Cirrhosis decompensated with ascites & Hepatic Encephalopathy: -hypoalbuminemia/coagulopathy/thrombocytopenia/elevated ammonia -States he comes into the ED for paracentesis almost once a month -MELD=23 (90-day mortality @20% risk), child-jordan=8(significant functional compromise, 80%/60% 1yr/2yr survival rate) *Metabolic acidosis, non-gap: *increased BUN/Cr ratio: *Anemia, chronic: *HTN: *Depression/anxiety: *GERD: *Right renal mass: Being worked up outpatient by oncology/nephrology *Urinary retention: jarvis placed *Tobacco use: P: -Paracentesis today, labs ordered to calculate SAAG. -Albumin 50 g IV given for large volume paracentesis. -Diuresis held for large volume paracentesis today. -Resume oral Lasix and spironolactone prior to discharge. -monitor uop, i/o -lactulose/rifaximin -prn paracentesis -GI following peripherally, planning for EGD Thursday. -Flomax, d/c jarvis prior to d/c -Smoking cessation counseling -PT/OT -Needs Home medication reconciliation. -ppx: SCDs for now following large-volume paracentesis and plan for EGD tomorrow. Resume Lovenox if platelets greater than 50k. Time Spent With Patient Time: Total time spent is greater than 50% in coordination of care (as documented) at patient's floor/unit and/or counseling patient: QUALITY VTE Deep Vein Thrombosis/Pulmonary Embolism Present on Admission: No
[2022-01-22] MEDS ORDERED: LACTULOSE 20 GM/30 ML ORAL.SOL PO SCH (14:30)
[2022-01-22] MEDS: ALBUMIN HUMAN 12.5 GM/50 ML BAG IV SCH ×2 (15:07→20:07)
[2022-01-22] MEDS ORDERED: FUROSEMIDE 20 MG/2 ML VIAL IV ONE (16:19)
[2022-01-22] MEDS: TAMSULOSIN 0.4 MG CAPSULE PO SCH (20:53)
[2022-01-22] MEDS: LORazepam 2 MG/ML VIAL IV PRN (21:11)
[2022-01-23] MEDS: 0.9 % SODIUM CHLORIDE 10 ML SYRINGE IV SCH ×3 (05:20→21:35)
[2022-01-23] MEDS: ACETAMINOPHEN 325 MG TABLET PO PRN ×3 (05:32→20:08)
[2022-01-23 07:51] LABS: Basophils # (Auto) 0 K/mcL (0.00-0.30); Basophils % (Auto) 0 % (0.0-2.0); Eosinophils # (Auto) 0.05 K/mcL (0.00-0.70); Eosinophils % (Auto) 1.2 % (0.0-7.0); Lymphocytes # (Auto) 0.74 K/mcL (1.50-4.80); Lymphocytes % (Auto) 18.1 % (15.5-49.0); Mean Cell Volume 96.7 fL (80.0-100.0); Mean Corpuscular HGB Conc 34.6 g/dL (31.0-36.0); Mean Platelet Volume 10.9 fL (8.8-12.5); Monocytes % (Auto) 17.1 % (1.0-12.0); Neutrophils % (Auto) 63.4 % (38.0-78.0); Platelet Count 57 K/mcL (140-440); RBC 2.69 M/mcL (4.63-6.08); Red Cell Distribution Width 15.2 % (11.5-14.5); WBC 4.1 K/mcL (4.5-11.0)
[2022-01-23 07:53] LABS: ALT/SGPT 33 U/L (<40); AST/SGOT 48 U/L (<40); Albumin 2.7 gm/dL (3.2-5.2); Alkaline Phosphatase 77 U/L (39-117); Bilirubin,Direct 0.5 mg/dL (<0.3); Bilirubin,Total 1.9 mg/dL (0.1-1.0); Blood Urea Nitrogen 44 mg/dL (8-23); Calcium 8.5 mg/dL (8.6-10.4); Carbon Dioxide 17 mmol/L (22-30); Chloride 102 mmol/L (96-108); Globulin 2.6 gm/dL (2.2-3.7); Glomerular Filtration Rate 96; Glucose 84 mg/dL (70-105); Lactate Dehydrogenase 267 U/L (135-225); Phosphorous 3.3 mg/dL (2.5-4.5); Triglycerides 45 mg/dL (<150); Uric Acid 8.6 mg/dL (2.5-8.0)
[2022-01-23] MEDS: RIFAXIMIN 550 MG TABLET PO SCH ×2 (08:44→20:08)
[2022-01-23] MEDS: LACTULOSE 20 GM/30 ML ORAL.SOL PO SCH ×3 (08:44→20:07)
[2022-01-23] MEDS: SODIUM CHLORIDE 1 GM TABLET PO SCH ×2 (08:44→20:08)
[2022-01-23] MEDS: ENOXAPARIN 40 MG/0.4 ML SYRINGE SQ SCH (10:12)
--- NOTE | 2022-01-23 12:09 | Procedure Note ---
PROC Paracentesis Consent obtained: verbal consent and written consent Date of Procedure: 01/23/22 Time out performed: Yes Indication: Ascites Procedure: therapeutic paracentesis Location: [facility] Local anesthetic used: lidocaine 1% Amount of anesthesia used (mLs): 8 Bedside ultrasound used: yes, Ascites confirmed and location marked Preparation: sterile prep and drape Amount of fluid obtained: 8,400 Fluid: clear and sent to lab for analysis Size of needle used: 19 Post procedure exam: awake, alert Patient tolerated procedure: well Complications: none
[2022-01-23] MEDS ORDERED: ALBUMIN HUMAN 25 GM/100 ML BAG IV SCH (12:35)
[2022-01-23] MEDS ORDERED: ALBUMIN HUMAN 25 GM/100 ML BAG IV ONE (12:44)
[2022-01-23] MEDS: LORazepam 2 MG/ML VIAL IV PRN (20:07)
[2022-01-23] MEDS: TAMSULOSIN 0.4 MG CAPSULE PO SCH (20:07)
[2022-01-24] MEDS: 0.9 % SODIUM CHLORIDE 10 ML SYRINGE IV SCH ×3 (05:48→20:49)
[2022-01-24 07:11] LABS: ALT/SGPT 31 U/L (<40); AST/SGOT 47 U/L (<40); Albumin 2.9 gm/dL (3.2-5.2); Albumin/Globulin Ratio 1.2 (1.0-2.3); Alkaline Phosphatase 80 U/L (39-117); Bilirubin,Direct 0.3 mg/dL (<0.3); Bilirubin,Total 0.9 mg/dL (0.1-1.0); Blood Urea Nitrogen 28 mg/dL (8-23); Calcium 8.4 mg/dL (8.6-10.4); Carbon Dioxide 19 mmol/L (22-30); Chloride 106 mmol/L (96-108); Globulin 2.4 gm/dL (2.2-3.7); Glomerular Filtration Rate 101; Glucose 100 mg/dL (70-105); Lactate Dehydrogenase 240 U/L (135-225); Phosphorous 2.2 mg/dL (2.5-4.5); Triglycerides 34 mg/dL (<150); Uric Acid 7.8 mg/dL (2.5-8.0)
[2022-01-24 08:17] LABS: Basophils # (Auto) 0.01 K/mcL (0.00-0.30); Basophils % (Auto) 0.3 % (0.0-2.0); Eosinophils # (Auto) 0.04 K/mcL (0.00-0.70); Eosinophils % (Auto) 1.3 % (0.0-7.0); Hematocrit 26.1 % (40.1-51.0); Hemoglobin 9.1 g/dL (13.7-17.5); Lymphocytes # (Auto) 0.68 K/mcL (1.50-4.80); Lymphocytes % (Auto) 22.8 % (15.5-49.0); Mean Corpuscular HGB Conc 34.9 g/dL (31.0-36.0); Mean Platelet Volume 10.9 fL (8.8-12.5); Monocytes % (Auto) 13.4 % (1.0-12.0); Neutrophils % (Auto) 61.9 % (38.0-78.0); Platelet Count 66 K/mcL (140-440); RBC 2.72 M/mcL (4.63-6.08); Red Cell Distribution Width 15.4 % (11.5-14.5)
[2022-01-24] MEDS ORDERED: KETAMINE 50 MG/ML ML IV PRN ×2 (08:37→11:08)
[2022-01-24] MEDS ORDERED: PROPOFOL 200 MG/20 ML VIAL IV SCH ×2 (08:45→11:15)
[2022-01-24] MEDS ORDERED: MIDAZOLAM 2 MG/2 ML VIAL IV SCH ×2 (08:45→11:15)
[2022-01-24] MEDS ORDERED: PROPOFOL 200 MG/20 ML VIAL IV ONE (11:23)
[2022-01-24] MEDS ORDERED: MIDAZOLAM 2 MG/2 ML VIAL ONE (11:23)
[2022-01-24] MEDS: POTASSIUM CHLORIDE 20 MEQ TABLET PO SCH ×2 (12:19→16:22)
[2022-01-24] MEDS: SODIUM CHLORIDE 1 GM TABLET PO SCH ×2 (12:19→20:49)
[2022-01-24] MEDS: RIFAXIMIN 550 MG TABLET PO SCH ×2 (12:19→20:49)
[2022-01-24] MEDS: LACTULOSE 20 GM/30 ML ORAL.SOL PO SCH ×4 (12:20→23:19)
[2022-01-24] MEDS: ENOXAPARIN 40 MG/0.4 ML SYRINGE SQ SCH ×2 (12:20→16:55)
--- NOTE | 2022-01-24 13:43 | Internal Med Progress Note ---
SUBJECTIVE Subjective Patient information: Note initiated : 01/24/22 at 1:38 pm Service Date, if different from initiated Date: [] Patient: Ubaldo Bajwa a 61 y/o M admitted on 01/21/22 for swollen testicles. Chief Complaint: [] Interval history: History of present illness: Mr. Bajwa is a 61 year old M Patient presented to the ED yesterday with scrotal swelling. Patient has a history of cirrhosis with ascites and gets paracentesis almost once a month. He had one done a week ago and had 4 L taken off. Yesterday is recommended for him to stay and get diuresed but he left AMA. But came back again today because of the swelling bothers him so much. Patient denies any abdominal pain. No fever chills nausea vomiting chest pain shortness of breath. 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 Is also admitted to [facility] from the through 16 January for decompensated cirrhosis. He is taking lactulose and is post to be on rifaximin but does not take that because of cost. The patient was post to get a EGD done today by Dr. Brown but did not show up. Laboratory work in the ED is not complete yet but does shows an anemia which is chronic. Hyponatremia and elevated BUN to creatinine ratio. 01/22 Patient borderline hypotensive maps last night required fluid boluses. Transferred to PCU. Lethargic/drowsy this morning. Elevated ammonia. Lactul ose and rifaximin started. INR 1.5. Met acidosis. Discussed case with Janett Willard. 01/23 Paracentesis today for about 8700 mL, albumin feels 50 g IV given. Deferred EGD until tomorrow due to large volume paracentesis today. Mental status and ammonia level improving, sodium level normal. Low potassium replaced. 01/24 No significant events overnight, EGD performed today awaiting report. Potassium low, replaced orally. Start Lasix and spironolactone this afternoon. Scrotal edema has markedly improved since admission. Mental status has also improved the patient is likely at baseline now. Transfer to [facility]. Physical exam Head: Atraumatic, normal inspection. Eyes: normal appearance, no scleral icterus. Neck: full ROM Respiratory: no respiratory distress. Cardiovascular: normal rate and rhythm, S1, S2. GI/Abdominal: Distended abdomen, nontender, no guarding. Extremities: full range of motion, nontender. Neurological: CN II-XII intact, intact motor, intact sensation. Psychiatric: Impaired cognition. Skin: warm, normal color Constitutional Vitals: Vital Signs Temp Pulse Resp BP Pulse Ox O2 Del Method 97.5 F 83 16 101/64 100 01/24/22 12:00 01/24/22 11:35 01/24/22 12:00 01/24/22 12:00 01/24/22 12:00 01/24/22 11:35 Period Temp Pulse Resp BP Sys/Smith Pulse Ox O2 Del Method O2 Flow Rate Last 24 Hr 97.1 F-98.1 F 70-90 16-18 86-114/54-79 94-100 Room Air-Room Air Intake and Output 01/23/22 01/24/22 01/24/22 21:59 05:59 13:59 Intake Total 500 886 118 Output Total 500 400 200 Balance 0 486 -82 Weight 60.47 kg Intake & Output: Intake & Output 01/23/22 01/24/22 01/24/22 21:59 05:59 13:59 Intake Total 500 886 118 Output Total 500 400 200 Balance 0 486 -82 Weight 60.47 kg Intake: IV 200 Oral 300 886 118 Output: Urine Catheter Amount 500 400 200 Other: Meal Dinner ensure x 1 Percent of Meal Consumed 0% 100% Urine Appearance Clear Clear Clear Uretheral (Jarvis) Clear Urine Color Dark Kaycee Light Kaycee Dark Yellow Uretheral (Jarvis) Dark Kaycee Urine Odor Normal Stool Size Copious Large Stool Color Brown Brown Stool Consistency Liquid Liquid Loose Loose # Bowel Movements 1 OBJ DATA Labs CBC & Chem 7: 01/24/22 06:04 01/24/22 06:04 Labs: Abnormal Lab Results 01/24/22 01/24/22 01/23/22 06:04 06:04 05:50 WBC 3.0 L RBC 2.72 L Hgb 9.1 L Hct 26.1 L POC Hct RDW 15.4 H Plt Count 66 L Lymph % (Auto) [place] % (Auto) 13.4 H Lymph # (Auto) 0.68 L [place] # (Auto) Lymphocytes % Monocytes % (Manual) Platelet Estimate RBC Morphology Poikilocytosis Anisocytosis PT INR POC Sodium Sodium Potassium 3.2 L 3.1 L Chloride Carbon Dioxide 19 L 17 L POC Total CO2 POC BUN BUN 28 H 44 H Osmolality Uric Acid 8.6 H Calcium 8.4 L 8.5 L Phosphorus 2.2 L Total Bilirubin 1.9 H Direct Bilirubin 0.3 H 0.5 H AST 47 H 48 H ALT Ammonia Lactate Dehydrogenase 240 H 267 H C-Reactive Protein Total Protein 5.3 L 5.3 L Albumin 2.9 L 2.7 L Albumin/Globulin Ratio Procalcitonin Urine Appearance 01/23/22 01/23/22 01/22/22 05:50 05:49 06:12 WBC 4.1 L RBC 2.69 L Hgb 9.0 L Hct 26.0 L POC Hct RDW 15.2 H Plt Count 57 L Lymph % (Auto) [place] % (Auto) 17.1 H Lymph # (Auto) 0.74 L [place] # (Auto) Lymphocytes % Monocytes % (Manual) Platelet Estimate RBC Morphology Poikilocytosis Anisocytosis PT INR POC Sodium Sodium Potassium Chloride Carbon Dioxide POC Total CO2 POC BUN BUN Osmolality Uric Acid Calcium Phosphorus Total Bilirubin Direct Bilirubin AST ALT Ammonia 93 H Lactate Dehydrogenase C-Reactive Protein Total Protein Albumin Albumin/Globulin Ratio Procalcitonin 0.22 H Urine Appearance 01/22/22 01/22/22 01/22/22 06:12 06:12 06:12 WBC RBC 2.60 L Hgb 8.8 L Hct 24.9 L POC Hct RDW 14.7 H Plt Count 54 L Lymph % (Auto) [place] % (Auto) Lymph # (Auto) [place] # (Auto) Lymphocytes % 13 L Monocytes % (Manual) 13 H Platelet Estimate Markedly decreased A RBC Morphology Abnormal A Poikilocytosis 1+ A Anisocytosis 1+ A PT INR POC Sodium Sodium 128 L Potassium Chloride Carbon Dioxide 16 L POC Total CO2 POC BUN BUN 39 H Osmolality Uric Acid Calcium 8.1 L Phosphorus Total Bilirubin Direct Bilirubin 0.4 H AST 58 H ALT Ammonia Lactate Dehydrogenase 309 H C-Reactive Protein 1.70 H Total Protein 5.3 L Albumin 2.3 L Albumin/Globulin Ratio 0.8 L Procalcitonin Urine Appearance 01/22/22 01/22/22 01/21/22 06:12 06:11 21:14 WBC RBC Hgb Hct POC Hct RDW Plt Count Lymph % (Auto) [place] % (Auto) Lymph # (Auto) [place] # (Auto) Lymphocytes % Monocytes % (Manual) Platelet Estimate RBC Morphology Poikilocytosis Anisocytosis PT 19.1 H INR 1.5 H POC Sodium Sodium Potassium Chloride Carbon Dioxide POC Total CO2 POC BUN BUN Osmolality 277 L Uric Acid Calcium Phosphorus Total Bilirubin Direct Bilirubin AST ALT Ammonia 322 H Lactate Dehydrogenase C-Reactive Protein Total Protein Albumin Albumin/Globulin Ratio Procalcitonin Urine Appearance 01/21/22 01/21/22 01/21/22 16:33 16:33 16:33 WBC RBC 3.11 L Hgb 10.4 L Hct 29.2 L POC Hct RDW 14.8 H Plt Count 100 L Lymph % (Auto) 9.7 L [place] % (Auto) 15.2 H Lymph # (Auto) 0.96 L [place] # (Auto) 1.50 H Lymphocytes % Monocytes % (Manual) Platelet Estimate RBC Morphology Poikilocytosis Anisocytosis PT INR POC Sodium Sodium 119 L* Potassium Chloride 91 L Carbon Dioxide 16 L POC Total CO2 POC BUN BUN 42 H Osmolality Uric Acid Calcium 8.4 L Phosphorus Total Bilirubin 1.3 H Direct Bilirubin 0.5 H AST 75 H ALT 44 H Ammonia Lactate Dehydrogenase 355 H C-Reactive Protein Total Protein 5.8 L Albumin 2.8 L Albumin/Globulin Ratio 0.9 L Procalcitonin Urine Appearance Hazy A 01/21/22 16:33 WBC RBC Hgb Hct POC Hct 28.0 L RDW Plt Count Lymph % (Auto) [place] % (Auto) Lymph # (Auto) [place] # (Auto) Lymphocytes % Monocytes % (Manual) Platelet Estimate RBC Morphology Poikilocytosis Anisocytosis PT INR POC Sodium 126 L Sodium Potassium Chloride Carbon Dioxide POC Total CO2 16.0 L POC BUN 40 H BUN Osmolality Uric Acid Calcium Phosphorus Total Bilirubin Direct Bilirubin AST ALT Ammonia Lactate Dehydrogenase C-Reactive Protein Total Protein Albumin Albumin/Globulin Ratio Procalcitonin Urine Appearance Meds: Medications Acetaminophen (Acetaminophen 325 Mg Tablet) 650 mg PO Q6HP PRN; Protocol PRN Reason: Per Pain Protocol/Fever > 101 Last Admin: 01/23/22 20:08 Dose: 650 mg Albuterol/Ipratropium (Ipratropium/Albuterol 3 Ml Ampul.Neb) 3 ml NEB Q4HP PRN PRN Reason: Shortness Of Breath Diagnostic Test (Pha) (Accu-Chek 1 Each Strip) 1 each FS UD PRN PRN Reason: DM Stop: 01/24/22 16:37 Enoxaparin Sodium (Enoxaparin 40 Mg/0.4 Ml Syringe) 40 mg SQ DAILY [facility] Last Admin: 01/23/22 10:12 Dose: Not Given Furosemide (Furosemide 40 Mg Tablet) 40 mg PO DAILY [facility] Potassium Chloride 40 meq/ (Dextrose) 520 mls @ 130 mls/hr IV UD PRN PRN Reason: Potassium < 3 Magnesium Sulfate (Magnesium Sulfate) 2 gm in 50 mls @ 50 mls/hr IV UD PRN PRN Reason: Magnesium </= 1.6 Ketamine HCl (Ketamine 50 Mg/Ml Ml) 50 mg IV ONCE PRN PRN Reason: Sedation Stop: 01/24/22 16:37 Lactulose (Lactulose 20 Gm/30 Ml Oral.Iris) 20 gm PO DAILYP PRN PRN Reason: Constipation Lactulose (Lactulose 20 Gm/30 Ml Oral.Iris) 30 gm PO TID [facility] Last Admin: 01/24/22 12:20 Dose: 30 gm Lorazepam (Lorazepam 2 Mg/Ml Vial) 0.5 mg IV Q6HP PRN PRN Reason: ANXIETY/SEDATION Last Admin: 01/23/22 20:07 Dose: 0.5 mg Midazolam HCl (Midazolam 2 Mg/2 Ml Vial) 0 mg IV ONCE [facility] Stop: 01/24/22 16:37 Ondansetron HCl (Ondansetron 4 Mg/2 Ml Vial) 4 mg IV Q4HP PRN PRN Reason: Nausea And Vomiting Potassium Chloride (Potassium Chloride 20 Meq Tablet) 40 meq PO UD PRN PRN Reason: Potssium is 3-3.5 Last Admin: 01/23/22 16:45 Dose: 40 meq Potassium Chloride (Potassium Chloride 20 Meq Tablet) 40 meq PO UD PRN PRN Reason: Potassium < 3 Potassium Chloride (Potassium Chloride 20 Meq Tablet) 40 meq PO BIDCC [facility] Stop: 01/24/22 17:31 Last Admin: 01/24/22 12:19 Dose: 40 meq Propofol (Propofol 200 Mg/20 Ml Vial) 0 mg IV UD [facility] Stop: 01/24/22 16:37 Last Admin: 01/24/22 11:24 Dose: 50 mg Sodium Chloride (0.9 % Sodium Chloride 10 Ml Syringe) 10 ml IV Q8 [facility] Last Admin: 01/24/22 05:48 Dose: 10 ml Sodium Chloride (Sodium Chloride 1 Gm Tablet) 2 gm PO BID [facility] Last Admin: 01/24/22 12:19 Dose: 2 gm Spironolactone (Spironolactone 25 Mg Tablet) 100 mg PO DAILY [facility] Tamsulosin HCl (Tamsulosin 0.4 Mg Capsule) 0.4 mg PO HS [facility] Last Admin: 01/23/22 20:07 Dose: 0.4 mg A/P Narrative A/P Narrative: Assessment: 61-year-old male with a history of decompensated liver cirrhosis, right renal mass, depression, anxiety, GERD resented to the ED for scrotal swelling and admitted for anasarca. The hospitalization was further complicated by hepatic encephalopathy. *Anasarca/scrotal swelling: *Decompensated liver cirrhosis -hypoalbuminemia/coagulopathy/thrombocytopenia/elevated ammonia -States he comes into the ED for paracentesis almost once a month -MELD=23 (90-day mortality @20% risk), child-jordan=8(significant functional compromise, 80%/60% 1yr/2yr survival rate) *Resolved hepatic encephalopathy *Metabolic acidosis, non-gap: *increased BUN/Cr ratio: *Anemia, chronic: *HTN: *Depression/anxiety: *GERD: *Right renal mass: Being worked up outpatient by oncology/nephrology *Urinary retention: jarvis placed *Tobacco use: P: -Start Lasix 40 mg daily and spironolactone 100 mg daily. -Monitor blood pressure, electrolytes, renal function. -monitor uop, i/o -lactulose/rifaximin -prn paracentesis -GI following, awaiting EGD report. -Flomax, d/c jarvis prior to d/c -PT/OT -Diet per GI. -ppx: SCDs for now Time Spent With Patient Time: Total time spent is greater than 50% in coordination of care (as documented) at patient's floor/unit and/or counseling patient: QUALITY VTE Deep Vein Thrombosis/Pulmonary Embolism Present on Admission: No
[2022-01-24] MEDS: FUROSEMIDE 40 MG TABLET PO SCH (16:22)
[2022-01-24] MEDS: SPIRONOLACTONE 25 MG TABLET PO SCH (16:22)
[2022-01-24] MEDS: TAMSULOSIN 0.4 MG CAPSULE PO SCH (20:49)
[2022-01-24] MEDS ORDERED: DIAZEPAM 2 MG TABLET PO PRN (20:56)
[2022-01-24 21:17] LABS: Mesothelial,Peritoneal Fluid 38 %; Monocyte,Peritoneal Fluid 32 %; Neutrophils,Peritoneal Fluid 10 %; Nucleated Cel,Peritoneal Fluid 38 /cumm; RBC,Peritoneal Fluid <50,000 /cumm
[2022-01-24] MEDS ORDERED: DIAZEPAM 5 MG TABLET ONE (21:23)
[2022-01-25] MEDS: 0.9 % SODIUM CHLORIDE 10 ML SYRINGE IV SCH ×2 (05:00→14:01)
[2022-01-25 06:49] LABS: Basophils # (Auto) 0.01 K/mcL (0.00-0.30); Basophils % (Auto) 0.3 % (0.0-2.0); Eosinophils # (Auto) 0.09 K/mcL (0.00-0.70); Eosinophils % (Auto) 2.8 % (0.0-7.0); Hematocrit 26.8 % (40.1-51.0); Lymphocytes # (Auto) 0.76 K/mcL (1.50-4.80); Lymphocytes % (Auto) 23.8 % (15.5-49.0); Mean Cell Volume 102.7 fL (80.0-100.0); Mean Corpuscular HGB Conc 37.3 g/dL (31.0-36.0); Mean Platelet Volume 10.6 fL (8.8-12.5); Monocytes # (Auto) 0.56 K/mcL (0.10-0.90); Monocytes % (Auto) 17.5 % (1.0-12.0); Neutrophils % (Auto) 55.3 % (38.0-78.0); Platelet Count 73 K/mcL (140-440); RBC 2.61 M/mcL (4.63-6.08); Red Cell Distribution Width 15.8 % (11.5-14.5); WBC 3.2 K/mcL (4.5-11.0)
[2022-01-25 07:26] LABS: ALT/SGPT 36 U/L (<40); AST/SGOT 51 U/L (<40); Albumin 2.9 gm/dL (3.2-5.2); Albumin/Globulin Ratio 1.2 (1.0-2.3); Alkaline Phosphatase 102 U/L (39-117); Bilirubin,Direct 0.3 mg/dL (<0.3); Bilirubin,Total 0.8 mg/dL (0.1-1.0); Blood Urea Nitrogen 21 mg/dL (8-23); Calcium 8.3 mg/dL (8.6-10.4); Carbon Dioxide 21 mmol/L (22-30); Chloride 107 mmol/L (96-108); Globulin 2.5 gm/dL (2.2-3.7); Glomerular Filtration Rate 96; Glucose 97 mg/dL (70-105); Lactate Dehydrogenase 252 U/L (135-225); Phosphorous 1.9 mg/dL (2.5-4.5); Triglycerides 30 mg/dL (<150); Uric Acid 6.9 mg/dL (2.5-8.0)
[2022-01-25] MEDS: SODIUM CHLORIDE 1 GM TABLET PO SCH (08:37)
[2022-01-25] MEDS: SPIRONOLACTONE 25 MG TABLET PO SCH (08:37)
[2022-01-25] MEDS: FUROSEMIDE 40 MG TABLET PO SCH (08:38)
[2022-01-25] MEDS: RIFAXIMIN 550 MG TABLET PO SCH (08:38)
[2022-01-25] MEDS: LACTULOSE 20 GM/30 ML ORAL.SOL PO SCH (08:39)
--- NOTE | 2022-01-25 12:39 | Ultrasound Report ---
INDICATION: Therapeutic paracentesis. TECHNIQUE: Informed consent was obtained. Discussed procedure as well as potential risks and complications including infection bleeding A right lateral approach was utilized. Routine fluoroscopy prepped skin cleansing. 1% lidocaine injected subcutaneously and deep. An 8 Arabic safety centesis set was utilized. 5.1 L of clear yellow fluid removed. IMPRESSION: 1. Ultrasound-guided paracentesis 2. 5.1 L clear yellow fluid removed Interpreted and Authenticated by: Christian Stevens 01/25/22
[2022-01-25] MEDS ORDERED: ALBUMIN HUMAN 25 GM/100 ML BAG IV ONE (12:43)
--- NOTE | 2022-01-25 12:56 | Discharge Summary ---
Discharge Provider Provider IMPORTANT FOLLOW-UP INFORMATION FOR PCP: Patient information: Note initiated : 01/25/22 at 12:52 pm Service Date, if different from initiated Date: [] Patient: Ubaldo Bajwa a 61 y/o M admitted on 01/21/22 for swollen testicles. Chief Complaint: [] Date of admission: 01/21/22 19:55 Discharge date: 01/25/22 Primary care physician: Christian Goins DO Consults: 01/21/22 Consult to Physician [CONS] Stat Comment: Consulting Provider: Anthony Carey Reason For Exam: Physician to Consult 01/22/22 10:02 Consult to Physician [CONS] Routine Comment: Consulting Provider: Gonzales Ahumada Reason For Exam: Physician to Consult Consult to Physician [CONS] Routine Comment: decompensated cirrhosis Consulting Provider: Janett Willard Reason For Exam: Physician to Consult COURSE Hospital Course Hospital course: Mr. Bajwa is a 61 year old M Patient presented to the ED yesterday with scrotal swelling. Patient has a history of cirrhosis with ascites and gets paracentesis almost once a month. He had one done a week ago and had 4 L taken off. Yesterday is recommended for him to stay and get diuresed but he left AMA. But came back again today because of the swelling bothers him so much. Patient denies any abdominal pain. No fever chills nausea vomiting chest pain shortness of breath. 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 Is also admitted to [facility] from the through 16 January for decompensated cirrhosis. He is taking lactulose and is post to be on rifaximin but does not take that because of cost. The patient was post to get a EGD done today by Dr. Brown but did not show up. Laboratory work in the ED is not complete yet but does shows an anemia which is chronic. Hyponatremia and elevated BUN to creatinine ratio. 01/22 Patient borderline hypotensive maps last night required fluid boluses. Transferred to PCU. Lethargic/drowsy this morning. Elevated ammonia. Lactulose and rifaximin started. INR 1.5. Met acidosis. Discussed case with Janett Willard. 01/23 Paracentesis today for about 8700 mL, albumin feels 50 g IV given. Deferred EGD until tomorrow due to large volume paracentesis today. Mental status and ammonia level improving, sodium level normal. Low potassium replaced. 01/24 No significant events overnight, EGD performed today awaiting report. Potassium low, replaced orally. Start Lasix and spironolactone this afternoon. Scrotal edema has markedly improved since admission. Mental status has also improved the patient is likely at baseline now. Ascites fluid with SAAG > 1.1. Transfer to [facility]. 01/25 Tolerating Lasix and Spironolactone well. Therapeutic paracentesis today for 5,100 mL. Albumin 25 gm IV ordered. Discharge in the afternoon. The patient will call the hospital radiology department to scheduled paracentesis as needed. Discharged with Lasix 40 mg daily, Spironolactone 100 mg daily, Lactulose, Rifaximin, and Flomax. Follow up with GI in clinic. Physical exam Head: Atraumatic, normal inspection. Eyes: normal appearance, no scleral icterus. Neck: full ROM Respiratory: no respiratory distress. Cardiovascular: normal rate and rhythm, S1, S2. GI/Abdominal: Distended abdomen, nontender, no guarding. Extremities: full range of motion, nontender. Neurological: CN II-XII intact, intact motor, intact sensation. Psychiatric: Impaired cognition. Skin: warm, normal color Discharge diagnosis: Decompensated liver cirrhosis Secondary discharge diagnosis: Hepatic encephalopathy Time Spent with Patient Time attestation: Total time spent providing and/or coordinating discharge services: Time spent: Greater than 30 minutes EXAM Constitutional Vitals: Temp Pulse Resp BP Pulse Ox O2 Del Method 98.0 F 81 16 93/61 100 01/25/22 12:16 01/25/22 07:56 01/25/22 12:16 01/25/22 12:16 01/25/22 12:16 01/25/22 12:16 Discharge Data Data Completed and Pending Labs on day of discharge: Labs from last 24 hours 01/25/22 01/25/22 01/25/22 05:39 05:39 05:39 WBC 3.2 L RBC 2.61 L Hgb 10.0 L Hct 26.8 L MCV 102.7 H MCH 38.3 H MCHC 37.3 H RDW 15.8 H Plt Count 73 L MPV 10.6 Immature Gran % (Auto) 0.3 Neut % (Auto) 55.3 Lymph % (Auto) 23.8 [place] % (Auto) 17.5 H Eos % (Auto) 2.8 Baso % (Auto) 0.3 Lymph # (Auto) 0.76 L [place] # (Auto) 0.56 Eos # (Auto) 0.09 Baso # (Auto) 0.01 Immature Gran # 0.01 Absolute Neutrophils 1.77 L Sodium 135 Potassium 4.4 Chloride 107 Carbon Dioxide 21 L Anion Gap 7.0 L BUN 21 Creatinine 0.8 GFR Calculation 96 Glucose 97 Uric Acid 6.9 Calcium 8.3 L Phosphorus 1.9 L Magnesium 1.8 Total Bilirubin 0.8 Direct Bilirubin 0.3 H GGT 25 AST 51 H ALT 36 Alkaline Phosphatase 102 Ammonia 40 Lactate Dehydrogenase 252 H Total Protein 5.4 L Albumin 2.9 L Globulin 2.5 Albumin/Globulin Ratio 1.2 Triglycerides 30 Peritoneal Source Peritoneal Color Peritoneal Appearance Peritoneal RBC Periton Nuc Cells Periton Neutrophils Periton Lymphocytes Peritoneal Monocytes Periton Mesothelial Peritoneal Albumin 01/23/22 01/23/22 12:20 12:20 WBC RBC Hgb Hct MCV MCH MCHC RDW Plt Count MPV Immature Gran % (Auto) Neut % (Auto) Lymph % (Auto) [place] % (Auto) Eos % (Auto) Baso % (Auto) Lymph # (Auto) [place] # (Auto) Eos # (Auto) Baso # (Auto) Immature Gran # Absolute Neutrophils Sodium Potassium Chloride Carbon Dioxide Anion Gap BUN Creatinine GFR Calculation Glucose Uric Acid Calcium Phosphorus Magnesium Total Bilirubin Direct Bilirubin GGT AST ALT Alkaline Phosphatase Ammonia Lactate Dehydrogenase Total Protein Albumin Globulin Albumin/Globulin Ratio Triglycerides Peritoneal Source Peritoneal Peritoneal Color P. yellow Peritoneal Appearance Clear Peritoneal RBC <50,000 Periton Nuc Cells 38 Periton Neutrophils 10 Periton Lymphocytes 20 Peritoneal Monocytes 32 Periton Mesothelial 38 Peritoneal Albumin < 0.2 Discharge Plan Patient/Caregiver Discharge Instructions Activity: increase activity as tolerated Diet: Low Sodium (2gm) Instructions: Hyponatremia (DC), Edema (DC) Prescriptions: New furosemide 40 mg Tablet 40 mg PO DAILY Qty: 60 4RF lactulose 20 gram/30 mL Solution 20 ml PO DAILYP PRN (Reason: Constipation) Qty: 1200 3RF Xifaxan 550 mg Tablet 550 mg PO BID Qty: 60 4RF lactulose 20 gram/30 mL Solution 30 ml PO TID Qty: 1500 6RF Rx Instructions: Adjust dose and frequency to have at least 3 loose bowel movements per day. spironolactone 25 mg Tablet 100 mg PO DAILY Qty: 60 4RF tamsulosin 0.4 mg Capsule 0.4 mg PO HS Qty: 60 4RF Continued allopurinol 300 mg tablet 300 mg PO QDAY Qty: 90 1RF alprazolam 1 mg tablet 1 mg PO BID Qty: 56 0RF triamcinolone acetonide 0.5 % cream 1 applic topical BID Qty: 15 3RF hydrocodone-acetaminophen 10-325 mg tablet 1 tab PO Q3H PRN (Reason: pain, mild) hydroxyzine HCl 10 mg tablet 2.5 tab PO Q6HP PRN (Reason: Anxiety) naloxone 4 mg/actuation spray,non-aerosol 1 spray intranasal Q1-2HP PRN (Reason: Opioid Overdose) Discontinued furosemide 40 mg tablet 20 mg PO QDAY Hold Instructions: Order Change spironolactone 100 mg tablet 50 mg PO QDAY Hold Instructions: Order Change lactulose 20 gram/30 mL solution 10 g PO TID amiloride 5 mg tablet 0.5 tab PO BID Follow Up Plan Follow up with: Christian Goins DO [Primary Care Provider] - Janett Willard ARNP [Nurse Practitioner] - Patient Disposition: Home, Self-Care Overall status at discharge: patient is progressing back to baseline Discharge Orders: Discharge Order (Routine); Ordered 01/25/22 Ordered By: Lupillo RAHMAN VTE Deep Vein Thrombosis/Pulmonary Embolism Present on Admission: No
--- NOTE | 2022-01-28 08:48 | EGD Procedure Note ---
EGD Procedure Notes Procedure Information Patient information: Note initiated : 01/28/22 at 8:45 am Patient: Ubaldo Bajwa 61 y/o M admitted on 01/21/22 for swollen testicles. Date of Procedure: 01/24/22 Pre-Op Diagnosis: Portal hypertension. Query varices. Post-Op Diagnosis: Erosive esophagitis. No varices. Procedure: EGD with Bx Procedure Narrative: The procedure, alternatives and risks were discussed with the patient and the patient's questions were answered. With endoscopist-administered intravenous sedation, the Olympus video endoscope was introduced into the esophagus. The esophagus, stomach, and duodenum were examined sequentially. No varices were seen. There is erosive esophagitis; this was biopsied. Congestive gastropathy was noted. Antral biopsy was taken for MIRELA test. The gastric mucosa, antrum, pyloric ring and duodenum were otherwise normal. The scope was withdrawn. Grafts/Implants: No Anesthesia: conscious sedation Findings: Erosive esophagitis. No varices. Complications: none Surgeon: Gonzales Ahumada Estimated blood loss: 0 Specimens Removed/Pathology: other Condition: stable Disposition: same day Assessment: Erosive esophagitis. No varices. Beta blockers should be avoided due the risk of SBP in patients with refractory ascites.
== END 2022-01-25 14:15 | disposition home or self-care (01) | DRG 433 ==
LOC: ED 16:07 → MEDSUR 19:55 → ICU 01-22 08:00 → MEDSUR 01-24 17:36
PROVIDERS: ADMIT Internal Medicine; ATTEND Internal Medicine